=== PATIENT | female | born 1960 | race Asian ===

== ENCOUNTER → 2022-05-18 | Day surgery (SDC) | payer BC | END | disposition home or self-care (01) | LOC: JRADIR 08:37 | PROVIDERS: ATTEND Internal Medicine Endocrinology, Diabetes & Metabolism | PROC: 0G9H3ZX Drainage of Right Thyroid Gland Lobe, Percutaneous Approach, Diagnostic (ICD-10-PCS; principal; 2022-05-18) | DX: E04.1 Nontoxic single thyroid nodule (principal) | CPT/HCPCS: 10005; 76942; 88173; 88305-TC ==